=== PATIENT | male | born 1970 | race Caucasian/White ===

== ENCOUNTER 2019-02-16 02:51 | Emergency (ER) | payer BC ==
[2019-02-16] MEDS ORDERED: ONDANSETRON HCL 8 MG TABLET PO ONE (03:42)
[2019-02-16] MEDS ORDERED: OXYCODONE-ACETAMINOPHEN 5-325 MG TABLET PO ONE ×2 (03:42→06:43)
[2019-02-16] MEDS ORDERED: NORMAL SALINE 1000 ML 1,000 ML IV ONE (03:42)
--- NOTE | 2019-02-16 03:43 | ER Document Report ---
ED Medical Screen (RME) - General Chief Complaint: Possible Kidney Stone Stated Complaint: FLANK PAIN Time Seen by Provider: 02/16/19 03:39 TRAVEL OUTSIDE OF THE [place] IN LAST 30 DAYS: No - HPI Notes: 02/16/19 03:51 Patient is a 48-year-old male who presents to the emergency department with a chief complaint of left flank pain. Patient states that the left flank pain developed on Friday and has been a constant spasming type pain. Patient states he has been using 800 mg ibuprofen, warm baths, CBD oil with melatonin that has gotten him throughout the weekend but sought care because the pain is not g etting any better. Patient has had nausea. No vomiting. Denies urinary symptoms. Denies chills. Patient states he has had a kidney stone in the past but it was very small and he did not have pain with it. Physical Exam - Vital signs Vitals: Temp Pulse Resp BP Pulse Ox 97.9 F 92 16 136/97 H 96 02/16/19 03:08 02/16/19 03:08 02/16/19 03:08 02/16/19 03:08 02/16/19 03:08 - Respiratory Respiratory status: No respiratory distress Chest status: Nontender Breath sounds: Normal Chest palpation: Normal - Cardiovascular Rhythm: Regular Heart sounds: Normal auscultation, S1 appreciated, S2 appreciated Course - Re-evaluation Re-evalutation: 02/16/19 03:53 I have greeted and performed a rapid initial assessment of this patient. A comprehensive ED assessment and evaluation of the patient, analysis of test results and completion of the medical decision making process will be conducted by additional ED providers. - Vital Signs Vital signs: Temp Pulse Resp BP Pulse Ox 97.9 F 92 16 136/97 H 96 02/16/19 03:08 02/16/19 03:08 02/16/19 03:08 02/16/19 03:08 02/16/19 03:08
[2019-02-16 04:44] LABS: ABSOLUTE BASOPHILS # (AUTO) 0.1 10^3/uL (0.0-0.2); ABSOLUTE EOSINOPHILS # (AUTO) 0.3 10^3/uL (0.0-0.6); ABSOLUTE LYMPHOCYTES (AUTO) 1.7 10^3/uL (0.5-4.7); ABSOLUTE MONOCYTES (AUTO) 1.2 10^3/uL (0.1-1.4); ABSOLUTE NEUT (AUTO) 6.4 10^3/uL (1.7-8.2); BASOPHILS % (AUTO) 0.5 % (0-2); EOSINOPHILS % (AUTO) 3.6 % (0-6); HEMATOCRIT 43.6 % (37.9-51.0); HEMOGLOBIN 15.1 g/dL (13.5-17.0); LYMPHOCYTES % (AUTO) 17.8 % (13-45); MEAN CORPUSCULAR HEMOGLOBIN 31.7 pg (27.0-33.4); MEAN CORPUSCULAR HGB CONC 34.6 g/dL (32.0-36.0); MEAN CORPUSCULAR VOLUME 92 fl (80-97); MONOCYTES % (AUTO) 12.6 % (3-13); PLATELET COUNT 197 10^3/uL (150-450); RED BLOOD COUNT 4.76 10^6/uL (4.35-5.55); RED CELL DISTRIBUTION WIDTH 14.6 % (11.5-14.0); SEGMENTED NEUTROPHILS % (AUTO) 65.5 % (42-78); TOTAL CELLS COUNTED % (AUTO) 100 %; WHITE BLOOD COUNT 9.7 10^3/uL (4.0-10.5)
[2019-02-16 04:52] LABS: APPEARANCE,URINE CLEAR; BILIRUBIN,URINE NEGATIVE (NEGATIVE); COLOR,URINE AMBER; GLUCOSE, URINE NEGATIVE (NEGATIVE); KETONES,URINE TRACE mg/dL (NEGATIVE); LEUKOCYTE ESTERASE,URINE NEGATIVE (NEGATIVE); NITRITE,URINE NEGATIVE (NEGATIVE); PROTEIN,URINE 30 mg/dL (NEGATIVE); URINE SPECIFIC GRAVITY 1.033
[2019-02-16 05:07] LABS: ALANINE AMINOTRANSFERASE 39 U/L (21-72); ALBUMIN 3.7 g/dL (3.5-5.0); ALKALINE PHOSPHATASE 119 U/L (38-126); ANION GAP 9 (5-19); ASPARTATE AMINO TRANSFERASE 22 U/L (17-59); BILIRUBIN,DIRECT 0.3 mg/dL (0.0-0.4); BILIRUBIN,TOTAL 0.7 mg/dL (0.2-1.3); BLOOD UREA NITROGEN 17 mg/dL (7-20); CALCIUM 10.3 mg/dL (8.4-10.2); CARBON DIOXIDE 28 mmol/L (22-30); CHLORIDE 107 mmol/L (98-107); GLUCOSE 156 mg/dL (75-110); POTASSIUM 4.8 mmol/L (3.6-5.0); SODIUM 143.9 mmol/L (137-145); TOTAL PROTEIN 6.6 g/dL (6.3-8.2)
--- NOTE | 2019-02-16 05:16 | RADIOLOGY REPORT (SQ) ---
EXAM DESCRIPTION: CT ABDOMEN PELVIS WITHOUT IV CONTRAST COMPLETED DATE/TME: 02/16/2019 03:42 CLINICAL HISTORY: 48 years Male, LEFT FLANK PAIN Comparison: None. Technique: No contrast. Coronal and sagittal reformat. This exam was performed according to our departmental dose-optimization program, which includes automated exposure control, adjustment of the mA and/or kV according to patient size and/or use of iterative reconstruction technique.[facility]: Dose Right [facility]: CareDose [facility]: Dose Right [facility]: Teradose 4D [facility]: [employer] LIMITATIONS: None Findings: 0.3 cm left proximal ureteral stone at the L3-L4 disc level. Minimal left hydronephrosis/hydroureter. Mild fatty streaking of mid abdominal mesentery, nonspecific. Cholecystectomy. Hepatic steatosis. Colonic diverticulosis. Degenerative disc disease. Atherosclerotic vascular disease. Likely benign renal cyst(s) measuring up to 2.4 cm on the left, not definitively characterized. No ascites. Normal appendix. No bowel obstruction. No evidence of abdominal aortic aneurysm. Unenhanced lower thorax, abdominopelvic structures, and musculoskeleton appear otherwise grossly unremarkable. Impression: A 0.3 cm left proximal ureteral stone with low-grade obstruction.
--- NOTE | 2019-02-16 06:15 | ER Document Report ---
ED GI/ - General Chief Complaint: Possible Kidney Stone Stated Complaint: FLANK PAIN Time Seen by Provider: 02/16/19 03:39 TRAVEL OUTSIDE OF THE [place] IN LAST 30 DAYS: No Past Medical History - General Information source: Patient - Social History Smoking Status: Unknown if Ever Smoked Frequency of alcohol use: None Drug Abuse: None Lives with: Family Family History: None - Medical History Medical History: Negative - Past Medical History Cardiac Medical History: Reports: None Pulmonary Medical History: Reports: None EENT Medical History: Reports: None Neurological Medical History: Reports: None Endocrine Medical History: Reports: None Renal/ Medical History: Reports: Hx Kidney Stones Malignancy Medical History: Reports None GI Medical History: Reports: None Musculoskeletal Medical History: Reports None Skin Medical History: Reports None Psychiatric Medical History: Reports: None Traumatic Medical History: Reports: None Infectious Medical History: Reports: None Past Surgical History: Reports: Hx Cholecystectomy Review of Systems - Review of Systems Constitutional: See HPI EENT: No symptoms reported Cardiovascular: No symptoms reported Respiratory: No symptoms reported Gastrointestinal: See HPI Genitourinary: No symptoms reported Male Genitourinary: No symptoms reported Musculoskeletal: No symptoms reported Skin: No symptoms reported Hematologic/Lymphatic: No symptoms reported Neurological/Psychological: No symptoms reported Physical Exam - Vital signs Vitals: Temp Pulse Resp BP Pulse Ox 97.9 F 92 16 136/97 H 96 02/16/19 03:08 02/16/19 03:08 02/16/19 03:08 02/16/19 03:08 02/16/19 03:08 Interpretation: Normal - Notes Notes: GENERAL: Well-appearing, well-nourished and in mild acute distress, appears uncomfortable. HEAD: Atraumatic, normocephalic. EYES: Pupils equal round and reactive to light, extraocular movements intact, sclera anicteric, conjunctiva are normal. ENT: TMs normal, nares patent, oropharynx clear without exudates. Moist mucous membranes. NECK: Normal range of motion, supple without lymphadenopathy or JVD. LUNGS: Breath sounds clear to auscultation bilaterally and equal. No wheezes rales or rhonchi. HEART: Regular rate and rhythm without murmurs, rubs or gallops. ABDOMEN: Soft, nontender, normoactive bowel sounds. No guarding, no rebound. No masses appreciated. EXTREMITIES: Normal range of motion, no pitting or edema. No clubbing or cyanosis. NEUROLOGICAL: Cranial nerves II through XII grossly intact. Normal speech, normal gait. PSYCH: Normal mood, normal affect. SKIN: Warm, Dry, normal turgor, no rashes or lesions noted. NO CVA tenderness bilaterally. Course - Re-evaluation Re-evalutation: 06:00 it was noted that patient has a 0.3 cm left proximal ureteral stone with mild hydronephrosis. Did discuss case with Dr. Avila. Urinalysis does show slight dehydration with ketones present. Patient has been tolerating liquids while in the emergency department without vomiting. Patient does not have a white blood cell count and his urinalysis was negative for infection. Will discharge patient with pain medication as well as antinausea medication. Gave patient to return for strict return precautions to include fever, inability to urinate or any other concerning signs or symptoms. 02/16/19 06:44 During discharge patient states he has developed more severe pain in the left flank area. She did already take ibuprofen 800 mg around 2 AM this morning, I will hold Toradol at this time. Patient states the Percocet did temporarily help with his pain. Offered IV fluids as well as IV pain medication. Patient states that he cannot stay as his needs to go to work. We will give patient a repeat dose of Percocet x1 tab. Patient in agreement with this plan. Discussed strict return precautions with patient and . Patient is tolerating fluids at this time. - Vital Signs Vital signs: Temp Pulse Resp BP Pulse Ox 97.9 F 95 16 145/109 H 95 02/16/19 03:08 02/16/19 06:34 02/16/19 06:34 02/16/19 06:34 02/16/19 06:34 - Laboratory Result Diagrams: 02/16/19 04:31 02/16/19 04:31 Laboratory results interpreted by me: 02/16/19 02/16/19 02/16/19 04:31 04:31 04:31 RDW 14.6 H Glucose 156 H Calcium 10.3 H Urine Protein 30 H Urine Ketones TRACE H Urine Urobilinogen 2.0 H Discharge - Discharge Clinical Impression: Ureteral stone, Nausea Condition: Stable Disposition: HOME, SELF-CARE Additional Instructions: Today you were seen in the emergency department for left flank pain. We did obtain a CT scan 0.3 cm proximal ureteral stone on the left side. This should pass on its own. We will give you a urine strainer to take home, please use this until you have passed the stone. Please follow-up with urology in the next few days if you have not passed the stone. At this time your urinalysis did not show infection. Your urine did show that you are slightly dehydrated, IV fluids were offered but at this time you politely declined as you have been tolerating liquids in the ER. Please return to the emergency department if you have severe pain that is not controlled with the pain medication, uncontrollable vomiting, inability to drink fluids, fever, inability to urinate or empty your bladder, or any other concerning signs or symptoms. Urology referral: [facility] [id number] [address] [facility] [address] [place] [address] Kidney Stone You are passing or have passed a kidney stone. These stones are usually due to increased calcium or uric acid concentrations in your urine. Stones within the kidney itself are not painful. The pain occurs as the stone leaves the kidney to pass down the long tube, called the ureter, leading to the bladder. If the stone is small, it will usually pass by itself. Most patients can pass the stone at home. You will usually receive medications for pain, nausea or vomiting, and sometimes a medication to assist in passing the kidney stone. However, if the pain is very severe or if vomiting prevents you from taking oral pain medications, you may need to return for further treatment. Drink three or four quarts of fluids per day. You will be given pain medication (if needed) and urine strainers. Strain all your urine to see if the stone passes. If your doctor has asked you to bring the stone in for analysis, return with the stone once it has passed. Return if pain or vomiting become severe, if you develop a high fever, if you are unable to pass your urine, or if other unusual symptoms occur. Prescriptions: Ondansetron [Zofran Odt 4 mg Tablet] 1 tab PO Q4H PRN #15 tab.rapdis PRN Reason: For Nausea/Vomiting Oxycodone HCl/Acetaminophen [Percocet 5-325 mg Tablet] 1 tab PO Q6 #15 tablet
[2019-02-16 07:20] VITALS: BP 145/109
== END 2019-02-16 06:50 | disposition home or self-care (01) ==
LOC: ER 02:51
DX: N20.1 Calculus of ureter (principal); R10.9 Unspecified abdominal pain; R11.0 Nausea; Z87.442 Personal history of urinary calculi; Z90.49 Acquired absence of other specified parts of digestive tract
CPT/HCPCS: 99284; 36415; 85025; 80053; 81001; 74176; S0119